=== PATIENT | female | born 1960 | race Caucasian/White ===

== ENCOUNTER 2016-12-26 18:51 | Emergency (ER) | payer OTHER, MEDICARE ==
[~2016-12-26] VITALS: Ht 162.6 cm; Wt 53.0 kg
[2016-12-26] MEDS ORDERED: KETOROLAC 60MG/2ML VIAL IM ONE (19:30)
[2016-12-26] MEDS ORDERED: ACETAMINOPHEN WITH CODEINE 300/30MG TABLET PO ONE (19:30)
[2016-12-26] MEDS ORDERED: IBUPROFEN 800MG TABLET PO ONE (20:15)
[2016-12-26 21:15] VITALS: BP 109/61
== END 2016-12-26 21:52 | disposition home or self-care (01) ==
LOC: ER 19:59
DX: M54.2 Cervicalgia (principal); M19.90 Unspecified osteoarthritis, unspecified site; V43.52XA Car driver injured in collision with other type car in traffic accident, initial encounter; Y93.89 Activity, other specified; Y92.488 Other paved roadways as the place of occurrence of the external cause
CPT/HCPCS: 72125; 99284; J1885